=== PATIENT | female | born 1970 | race Caucasian/White ===

== ENCOUNTER 2019-09-01 09:09 | Day surgery (SDC) | payer BC ==
[~2019-09-01 09:09] MED LIST: Midazolam 1 MG/ML 2 ML SDV ONE; Propofol 200 MG/20 ML SDV ONE
[2019-09-01] MEDS ORDERED: Lactated Ringers 1,000 ML IV SCH (09:15)
[2019-09-01] MEDS ORDERED: Sodium Chloride 0.9% 10 ML Syringe FLUSH PRN (09:15)
--- NOTE | 2019-09-01 10:12 | PCM.HPR ---
H & P Addendum review - H & P Addendum Review Date of Original H & P: 08/24/19 Date Reviewed: 09/01/19 Time Reviewed: 10:11 Patient was Examined: No Changes
[2019-09-01] MEDS ORDERED: Midazolam 1 MG/ML 2 ML SDV ONE (10:21)
[2019-09-01] MEDS ORDERED: Propofol 200 MG/20 ML SDV ONE (10:21)
--- NOTE | 2019-09-01 11:02 | PCM.OPNOTE ---
- General Post-Op/Procedure Note Date of Surgery/Procedure: 09/01/19 Operative Procedure(s): Colonoscopy wit Bx/Tattoo Findings: Rectal Ca Pre Op Diagnosis: Heme pos stool Post-Op Diagnosis: Same Anesthesia Technique: LINDY Primary Surgeon: Jose English Anesthesia Provider: Magdalena Watt Pathology: Rectal Mass EBL in mLs: 1 Complications: None Condition: Good
[2019-09-01] MEDS ORDERED: Iopamidol 612 MG/ML 100 ML Bottle IVPUSH ONE (13:01)
[2019-09-01] MEDS ORDERED: Diatrizoate Meglumine/Diatrizoate Sodium 37% 30 ML Bottle PO ONE (14:35)
--- NOTE | 2019-09-02 09:34 | OR ---
Date of Procedure: 09/01/2019 PREOPERATIVE DIAGNOSIS: Hemoccult-positive stool. POSTOPERATIVE DIAGNOSIS: Rectal cancer. PROCEDURE: Colonoscopy with biopsy and tattoo. ANESTHESIA: IV sedation. DESCRIPTION OF PROCEDURE: The patient was brought to the operating room were she was placed on her left side, and IV sedation administered. Digital rectal exam was performed, which was normal. Colonoscope was inserted, and immediately, a large rectal mass consistent with malignancy was noted with the lower edge 10 cm from the anal verge. This was approximately 1/3 to half circumferential with ulcerated center. At the end of the procedure, I took multiple biopsies and tattooed all 4 quadrants at its inferior edge. Photographs were taken. Scope was advanced to the level of the cecum without difficulty. Cecal position was confirmed by identifying the appendiceal lumen and ileocecal valve. The prep was very good, and surfaces were well visualized. Upon withdrawing the scope, the ascending, transverse, and descending colon were normal in appearance. Sigmoid colon was normal. The rectum was as described above. Retroflexion was normal. Air was removed, and the scope withdrawn. Patient tolerated the procedure well and returned to recovery in stable condition. I will have the patient followup with Maureen Wong PA-C. She will need a CT scan of the chest, abdomen, and pelvis for staging. CEA blood level will be needed. She will be referred to Medical and Radiation Oncology. EDILBERTO SAVAGE MD /[id number]
== END 2019-09-01 14:25 | disposition home or self-care (01) ==
LOC: LL.SDS 09:09
PROVIDERS: ATTEND Surgery
DX: C20 Malignant neoplasm of rectum (principal); E78.5 Hyperlipidemia, unspecified; E03.9 Hypothyroidism, unspecified; K21.9 Gastro-esophageal reflux disease without esophagitis; E66.9 Obesity, unspecified; I10 Essential (primary) hypertension; Z87.11 Personal history of peptic ulcer disease; Z98.890 Other specified postprocedural states; Z79.899 Other long term (current) drug therapy
CPT/HCPCS: 00813; 36415; 71260; 74177; 80076; 82378; J2250; J2704; J7120; Q9963; Q9967